=== PATIENT | female | born 1985 | race Two or more races ===

== ENCOUNTER 2020-10-23 12:56 | Observation (INO) | payer MEDICAID ==
[~2020-10-23] VITALS: Ht 160 cm; Wt 64.4 kg
[2020-10-23 14:42] LABS: CLARITY URINE TURBID (CLEAR); COLOR URINE YELLOW (YELLOW); KETONES URINE NEGATIVE (NEGATIVE); LEUKOCYTE ESTERASE URINE 2+ (NEGATIVE); NITRITE URINE NEGATIVE (NEGATIVE); OCCULT BLOOD URINE NEGATIVE (NEGATIVE); PH URINE >=9.0 (4.5-8.0); PROTEIN URINE NEGATIVE (NEGATIVE); SPECIFIC GRAVITY URINE 1.015 (1.005-1.030)
[2020-10-23 15:09] LABS: CHLORIDE 107 mEq/L (98-107)
== END 2020-10-23 15:45 | disposition home or self-care (01) ==
LOC: 8 EST LDRP 12:56
PROVIDERS: ADMIT Obstetrics & Gynecology; ATTEND Obstetrics & Gynecology
DX: O26.893 Other specified pregnancy related conditions, third trimester (principal); R10.2 Pelvic and perineal pain; Z3A.30 30 weeks gestation of pregnancy
CPT/HCPCS: 36415; 59025; 80048; 81003; 82731; G0378; 99281

== ENCOUNTER 2020-12-25 18:06 | Observation (INO) | payer MEDICAID ==
[~2020-12-25] VITALS: Ht 160 cm; Wt 69.4 kg
[2020-12-25] MEDS: LACTATED RINGERS 1,000 ML IV SCH (21:30)
== END 2020-12-25 23:58 | disposition home or self-care (01) ==
LOC: 8 EST LDRP 18:06
PROVIDERS: ADMIT Obstetrics & Gynecology; ATTEND Obstetrics & Gynecology
DX: O62.9 Abnormality of forces of labor, unspecified (principal); Z3A.38 38 weeks gestation of pregnancy
CPT/HCPCS: 59025; 96360; G0378; 99281

== ENCOUNTER 2020-12-26 09:33 | Observation (INO) | payer MEDICAID ==
[~2020-12-26] VITALS: Ht 160 cm; Wt 69.4 kg
== END 2020-12-26 11:10 | disposition home or self-care (01) ==
LOC: 8 EST LDRP 09:33
PROVIDERS: ADMIT Obstetrics & Gynecology; ATTEND Obstetrics & Gynecology
DX: O62.9 Abnormality of forces of labor, unspecified (principal); O26.853 Spotting complicating pregnancy, third trimester; O26.893 Other specified pregnancy related conditions, third trimester; R10.2 Pelvic and perineal pain; Z3A.38 38 weeks gestation of pregnancy
CPT/HCPCS: 59025; G0378; 99281